=== PATIENT | female | born 1995 | race Caucasian/White ===

== ENCOUNTER 2016-05-16 09:27 | Emergency (ER) | payer MEDICAID, OTHER ==
[2016-05-16] MEDS ORDERED: Ondansetron INJ* 2 MG/ML VIAL IV ONE (09:52)
--- NOTE | 2016-05-16 10:31 | ED ---
Abdominal Pain/Female - HPI Summary HPI Summary: Patient [facility] from [facility] with a CC of RLQ and RUQ pain x 2 weeks worse at night and on palpation. Patient also has experienced BRBPR x 2 days with pain in the area upon defecation. She denies recent illness, significant PMHx or fever. She recently started taking Effexor as of last week. Patient notes family history of IBS. Patient states she has not changed her diet, and the pain is worse in the middle of the night, several hours after eating anything. Pain is intermittent and is described as a cramping. She also states pain is lessened after defecation, but is still present. Denies fever, chest pressure, SOB, CRUZ, or neck pain. - History of Current Complaint Chief Complaint: EDAbdNicin Stated Complaint: ABD PAIN FOR 2 WEEKS Time Seen by Provider: 05/16/16 09:34 Hx Obtained From: Patient ?: No Onset/Duration: Sudden Onset Timing: Intermittent Episode Lasting - several minutes Severity Initially: Moderate Severity Currently: Moderate Pain Intensity: 5 Pain Scale Used: 0-10 Numeric Location: Discrete At: RUQ, Discrete At: RLQ Radiates: No Character: Burning, Cramping Aggravating Factor(s): Nothing Alleviating Factor(s): Bowel Movement - only slightly Associated Signs and Symptoms: Positive: Blood in Stool - Risk Factors Ectopic Risk Factor: Negative Ovarian Torsion Risk Factor: Reproductive Age Allergies/Adverse Reactions: Allergies Allergy/AdvReac Type Severity Reaction Status Date / Time No Known Allergies Allergy Verified 05/16/16 10:08 PMH/Surg Hx/FS Hx/Imm Hx Previously Healthy: Yes Infectious Disease History: No Infectious Disease History: Denies: Traveled Outside the [place] in Last 30 Days - Social History Occupation: Unemployed Lives: Alone Alcohol Use: Rare Hx Substance Use: Yes Substance Use Type: Reports: Heroin Hx Tobacco Use: Yes Smoking Status (MU): Light Every Day Tobacco Smoker Review of Systems Constitutional: Negative Cardiovascular: Negative Respiratory: Negative Positive: Abdominal Pain - RUQ, RLQ, Nausea, Other - blood in stool Positive: no symptoms reported, see HPI Musculoskeletal: Negative Skin: Negative Neurological: Negative All Other Systems Reviewed And Are Negative: Yes Physical Exam Triage Information Reviewed: Yes Vital Signs On Initial Exam: Initial Vitals Temp Pulse Resp BP Pulse Ox 98 F 78 18 110/46 97 05/16/16 09:40 05/16/16 09:40 05/16/16 09:40 05/16/16 09:40 05/16/16 09:40 Vital Signs Reviewed: Yes Appearance: Positive: Well-Appearing, Well-Nourished Skin: Positive: Warm, Skin Color Reflects Adequate Perfusion Head/Face: Positive: Normal Head/Face Inspection Eyes: Positive: NORMA Neck: Positive: Supple, No Lymphadenopathy Respiratory/Lung Sounds: Positive: Clear to Auscultation, Breath Sounds Present Cardiovascular: Positive: Normal, RRR Abdomen Description: Positive: McBurney's Point Tenderness, Other: - tenderness over RLQ and RUQ Bowel Sounds: Positive: Hypoactive Musculoskeletal: Positive: Normal, Strength/ROM Intact Neurological: Positive: Speech Normal Psychiatric: Positive: Normal - [place] Coma Scale Coma Scale Total: 15 Diagnostics - Vital Signs Vital Signs Temp Pulse Resp BP Pulse Ox 05/16/16 09:40 98 F 78 18 110/46 97 - Laboratory Result Diagrams: 05/16/16 10:20 05/16/16 10:20 Lab Statement: Any lab studies that have been ordered have been reviewed, and results considered in the medical decision making process. Abdominal Pain Fem Course/Dx - Course Course Of Treatment: Arrived by ambulance from addiction center with abomdinal pain intermittent for 2 weeks and rectal bleeding. Patient sent to CT. Labs indicated elevated liver enzymes and hepatitis C positive assay on last blood draw. Zofran given for preventative measures prior to CT. Patient requested information from her HIV and Hepatitis results which were drawn last week. Informed of Hepatitis and HIV results, and encouraged needed follow up with GI doctor. CT results: IMPRESSION: 1. Normal appendix documented. No acute abdominal pelvic visceral process evident. 2. Mildly prominent ovaries with innumerable small follicles; correlate for potential. polycystic ovarian syndrome. 3. Nonspecific soft tissue density lesion in the subcutaneous tissue plane of the LEFT. buttock. This may represent an old hematoma; correlate for history of prior traumatic. injury in this region. In absence of history of previous injury correlate with clinical. data and consider nonemergent ultrasound or contrast-enhanced MRI for further assessment. DOUG reveals no external hemorroids. Patient made aware of all results and communicated possibilities of abdominal pain and rectal bleeding to patient. Follow up was greatly encouraged for OBGYN regarding small follicles on the cysts and GI follow up for hepatitis and right sided abdominal pain. Discussed the need for further testing. Patient requesting the tests for IBD and IBS here. Provider communicated to the patient that would require GI consult, special tests and possibly colonosocpy. Patient agrees with plan. Patient is upset with addiction center for not disclosing her Hep C results. Medicaid cab called to return to addiction center. - Diagnoses Differential Diagnosis: Positive: Constipation, Diverticulitis, Hepatitis, Urinary Tract Infection Provider Diagnoses: Abdominal pain, Hepatitis C antibody test positive Discharge - Discharge Plan Condition: Stable Disposition: HOME Patient Education Materials: Hepatitis C (ED) Referrals: Jose A Jha, [Primary Care Provider] - Alen Jenkins MD [Medical Doctor] - Ismael Vásquez MD [Medical Doctor] - Additional Instructions: Follow up with OBGYN and GI doctors regarding these issues. Tylenol or Ibuprofen as needed for pain.
[2016-05-16 10:35] LABS: Hematocrit 34 % (35-47); Hemoglobin 10.7 g/dl (12.0-16.0); Mean Corpuscular HGB Conc 31 g/dl (31-36); Mean Corpuscular Hemoglobin 19 pg (27-31); Mean Platelet Volume 10 um3 (7.4-10.4); Red Blood Count 5.55 10^6/ul (4.0-5.4); Red Cell Distribution Width 15 % (10.5-15); White Blood Count 7.8 10^3/ul (3.5-10.8)
[2016-05-16 10:50] LABS: ALT 102 U/L (7-52); AST 48 U/L (13-39); Albumin 4.5 g/dL (3.2-5.2); Alkaline Phosphatase 62 U/L (34-104); Anion Gap 6 mmol/L (2-11); BUN/Creatinine Ratio 25.4 (8-20); Blood Urea Nitrogen 15 mg/dL (6-24); C Reactive Protein < 1.00 mg/L (< 5.00); CO2 Carbon Dioxide 29 mmol/L (22-32); Calcium 9.7 mg/dL (8.6-10.3); Chloride 103 mmol/L (101-111); EGFR African American 165.5 (>60); EGFR Non-African American 128.7 (>60); Globulin 2.8 g/dL (2-4); Glucose 85 mg/dL (70-100); Lipase 12 U/L (11.0-82.0); Potassium 3.9 mmol/L (3.5-5.0); Sodium 138 mmol/L (133-145); Total Protein 7.3 g/dL (6.4-8.9)
[2016-05-16 10:54] LABS: Comments Flag Yes
[2016-05-16 10:55] LABS: Mean Corpuscular Volume 62 fL (80-97)
[2016-05-16] MEDS ORDERED: Iohexol 300* (CONTRAST) 10 ML SDV IV ONE (11:58)
[2016-05-16 12:07] LABS: Urine Bilirubin Negative (Negative); Urine Glucose Negative (Negative); Urine Nitrite Negative (Negative)
--- NOTE | 2016-05-16 13:23 | RAD ---
INDICATION: 2 weeks RIGHT lower quadrant and RIGHT upper quadrant pain. COMPARISON: None. TECHNIQUE: Multidetector CT images were obtained from the lung bases to the ischial tuberosities with 93 mL Omnipaque 300 IV and oral contrast. Multiplanar reformation. REPORT: Unremarkable visualized inferior thorax. The liver, gallbladder, pancreas, and spleen are unremarkable. Upper normal size spleen. Negative for CT abnormality of the upper GI, small bowel, or appendix visualized extending posterior and medial from the cecum. Enteric contrast extends to the descending colon sigmoid junction. Moderate formed stool in the LEFT colon. Physiologic trace free pelvic fluid. Retroverted LEFT deviated uterus. Mildly prominent ovaries with suggestion of multiple small follicles. No suspicious adnexal region lesions. Negative for lymphadenopathy. Unremarkable dominant retroperitoneal vasculature. Negative for suspicious osseous lesions. Within the subcutaneous tissue plane of the upper aspect of the LEFT buttock a lobular margin soft tissue density lesion is identified measuring 2.9 x 2.3 x 2.5 cm. At the cephalad margin the lesion approximates the deep margin of the dermal tissue plane. Negative for associated calcifications. IMPRESSION: 1. Normal appendix documented. No acute abdominal pelvic visceral process evident 2. Mildly prominent ovaries with innumerable small follicles; correlate for potential polycystic ovarian syndrome. 3. Nonspecific soft tissue density lesion in the subcutaneous tissue plane of the LEFT buttock. This may represent an old hematoma; correlate for history of prior traumatic injury in this region. In absence of history of previous injury correlate with clinical data and consider nonemergent ultrasound or contrast-enhanced MRI for further assessment.
[2016-05-16 13:33] VITALS: BP 115/76
--- NOTE | 2016-05-16 15:17 | PN ---
Progress Note - Progress Note Note: Rectal exam: Female provider to female patient. normal sphincter tone. no external hemorrhoids seen no fissures present Otherwise normal rectal examination Patient tolerated well.
== END 2016-05-16 14:44 | disposition home or self-care (01) ==
LOC: ED 09:27
DX: R10.31 Right lower quadrant pain (principal); R10.11 Right upper quadrant pain; F17.200 Nicotine dependence, unspecified, uncomplicated; R76.8 Other specified abnormal immunological findings in serum; B18.2 Chronic viral hepatitis C
CPT/HCPCS: 36415; 74177; 80053; 81003; 83690; 84702; 85025; 86140; 96374; 99283; J2405; Q9967